=== PATIENT | male | born 1955 | race African-American/Black ===

== ENCOUNTER 2020-01-26 10:04 | Emergency (ER) | payer MEDICARE ==
[~2020-01-26] VITALS: Ht 180.3 cm; Wt 61.0 kg
[2020-01-26 10:43] LABS: CLARITY URINE CLEAR (CLEAR); COLOR URINE YELLOW (YELLOW); KETONES URINE NEGATIVE (NEGATIVE); LEUKOCYTE ESTERASE URINE 2+ (NEGATIVE); NITRITE URINE NEGATIVE (NEGATIVE); OCCULT BLOOD URINE 3+ (NEGATIVE); PROTEIN URINE TRACE (NEGATIVE); SPECIFIC GRAVITY URINE 1.015 (1.005-1.030); UROBILINOGEN URINE 0.2 E.U./dL (0.2-1.0)
[2020-01-26] MEDS ORDERED: CEFTRIAXONE SODIUM 1 G/VIAL IM ONE (11:00)
[2020-01-26] MEDS ORDERED: LIDOCAINE HCL 1% 20ML VIAL (Pyxis) INJ INFIL ONE (11:00)
[2020-01-26 11:20] VITALS: BP 152/97
[2020-01-26 11:20] LABS: *AMPHETAMINES SCREEN URINE NEGATIVE (NEGATIVE)
[2020-01-26 11:21] LABS: *BARBITURATES SCREEN URINE NEGATIVE (NEGATIVE); *BENZODIAZEPINES SCREEN URINE NEGATIVE (NEGATIVE); *COCAINE SCREEN URINE NEGATIVE (NEGATIVE); METHADONE URINE SCREEN NEGATIVE (NEGATIVE); OPIATES URINE SCREEN NEGATIVE (NEGATIVE); PHENCYCLIDINE URINE SCREEN NEGATIVE (NEGATIVE)
[2020-01-26 11:22] LABS: CANNABINOID URINE SCREEN NEGATIVE (NEGATIVE)
== END 2020-01-26 11:22 | disposition home or self-care (01) ==
LOC: EDSEX 10:04 → ER 10:04
DX: N39.0 Urinary tract infection, site not specified (principal); N40.1 Benign prostatic hyperplasia with lower urinary tract symptoms; R39.15 Urgency of urination; Z21 Asymptomatic human immunodeficiency virus [HIV] infection status
CPT/HCPCS: 80305; 81003; 87086; 96372; 99283; J0696; J3490